=== PATIENT | female | born 1985 | race Caucasian/White ===

== ENCOUNTER 2021-11-23 09:29 | Outpatient (CLI) | payer BC, SELFPAY ==
--- NOTE | 2021-11-23 09:39 | CRLHL7_ITS ---
For Patients: As a result of the Cures Act, medical imaging exams and procedure reports are released immediately into your electronic medical record. You may view this report before your referring provider. If you have questions, please contact your health care provider. RIGHT DIAGNOSTIC MAMMOGRAM WITH COMPUTER-AIDED DETECTION AND TOMOSYNTHESIS, 11/23/2021 RIGHT AXILLA ULTRASOUND, 11/23/2021 CLINICAL HISTORY: 35-year-old with a LEFT axillary lump. TECHNIQUE: These mammographic images have been obtained using full-field digital technique. These mammographic images were interpreted with the benefit of computer-aided detection. Breast Tomosynthesis was used in this interpretation. RIGHT axilla ultrasound was also performed. COMPARISON FILM: No comparison. BREAST COMPOSITION: There are scattered areas of fibroglandular density. FINDINGS: No suspicious mammographic findings. Ultrasound over RIGHT axillary lump which is a superficial lump demonstrates a superficial 1.1 x 1.2 x 0.4 cm hypoechoic lesion just underneath the skin. This most likely reflects a sebaceous cyst. IMPRESSION: The patient???s lump corresponds to a 1.2 x 0.4 x 1.1 cm superficial hypoechoic lesion just underneath the skin; questionable skin tract. This most likely reflects a sebaceous cyst. To be conservative, followup ultrasound in three months is recommended. ASSESSMENT: BI-RADS Category 3: Probably Benign A lay language report of this examination will be provided to the patient. Tatiana Olmos M.D. Diagnostic/Breast Radiologist [email or web address] PT/Dictated by: Tatiana Olmos MD @ 11/23/2021 10:30:00 AM (Electronically Signed)
--- NOTE | 2021-11-23 10:15 | CRLHL7_ITS ---
For Patients: As a result of the Century Cures Act, medical imaging exams and procedure reports are released immediately into your electronic medical record. You may view this report before your referring provider. If you have questions, please contact your health care provider. PLEASE SEE RIGHT DIAGNOSTIC MAMMOGRAM OF SAME DAY. [email or web address] PT/Dictated by: Tatiana Olmos MD @ 11/23/2021 10:30:00 AM (Electronically Signed)
== END 2021-11-23 09:30 | disposition home or self-care (01) ==
LOC: MAMMO 09:30
PROVIDERS: PCP Family Medicine; Visit Provider Family Medicine
DX: R22.31 Localized swelling, mass and lump, right upper limb
CPT/HCPCS: 76882; 77065; G0279

== ENCOUNTER 2022-03-15 10:02 | Outpatient (CLI) | payer BC, SELFPAY ==
--- NOTE | 2022-03-15 10:15 | CRLHL7_ITS ---
For Patients: As a result of the Century Cures Act, medical imaging exams and procedure reports are released immediately into your electronic medical record. You may view this report before your referring provider. If you have questions, please contact your health care provider. INDICATION: Follow-up a right axillary palpable abnormality. Probable sebaceous cyst. TECHNIQUE: Directed right axillary ultrasound. COMPARISON: Correlation is made with a mammogram 11/23/2021. Comparison is made to a right axillary ultrasound 11/23/2021. FINDINGS: Just below the skin in the right axilla there is a 0.4 x 0.2 x 0.6 cm hypoechoic oval-shaped nodule likely a small sebaceous cyst. This has clearly decreased in size when compared with 11/23/2021 when it measured up to 1.2 cm. It is no longer palpable. No further workup or follow-up is recommended. IMPRESSION: Interval decrease in the size of a right axillary sebaceous cyst now measuring up to 0.6 cm previously 1.2 cm. No other further workup or follow-up is recommended. Dictated by Kaushal Griffin MD @ 03/15/2022 12:57:35 PM (Electronically Signed)
== END 2022-03-15 10:03 | disposition home or self-care (01) ==
LOC: US 10:02
PROVIDERS: PCP Family Medicine; Visit Provider Family Medicine
DX: R22.31 Localized swelling, mass and lump, right upper limb (principal)
CPT/HCPCS: 76882

== ENCOUNTER 2022-09-01 09:04 | Outpatient (CLI) | payer BC, SELFPAY | END 2022-09-01 09:05 | disposition home or self-care (01) | LOC: NFLDREF 16:44 | PROVIDERS: PCP Family Medicine; Referring Provider Family Medicine; Visit Provider Family Medicine | DX: Z00.00 Encounter for general adult medical examination without abnormal findings (principal); E78.5 Hyperlipidemia, unspecified; E66.9 Obesity, unspecified; E03.9 Hypothyroidism, unspecified; E55.9 Vitamin D deficiency, unspecified; F41.9 Anxiety disorder, unspecified; F32.A Depression, unspecified; K21.9 Gastro-esophageal reflux disease without esophagitis; F33.42 Major depressive disorder, recurrent, in full remission; J30.1 Allergic rhinitis due to pollen; F98.8 Other specified behavioral and emotional disorders with onset usually occurring in childhood and adolescence; Z13.9 Encounter for screening, unspecified | CPT/HCPCS: 80053; 80061; 82306; 84443 ==

== ENCOUNTER 2023-08-22 08:40 | Outpatient (CLI) | payer OTHER, SELFPAY | END 2023-08-22 08:41 | disposition home or self-care (01) | LOC: NFLDREF 08-24 11:58 | PROVIDERS: PCP Family Medicine; Referring Provider Family Medicine; Visit Provider Family Medicine | DX: E78.5 Hyperlipidemia, unspecified (principal); E03.9 Hypothyroidism, unspecified; E55.9 Vitamin D deficiency, unspecified | CPT/HCPCS: 80061; 82306; 84443 ==

== ENCOUNTER 2024-07-20 09:12 | Outpatient (CLI) | payer OTHER, SELFPAY | END 2024-07-20 09:13 | disposition home or self-care (01) | LOC: NFLDREF 07-25 00:43 | PROVIDERS: PCP Family Medicine; Referring Provider Family Medicine; Visit Provider Family Medicine | DX: E78.00 Pure hypercholesterolemia, unspecified (principal); E03.9 Hypothyroidism, unspecified; E55.9 Vitamin D deficiency, unspecified; R53.83 Other fatigue; M81.0 Age-related osteoporosis without current pathological fracture | CPT/HCPCS: 80053; 80061; 82306; 84443 ==

== ENCOUNTER 2024-07-24 09:39 | Outpatient (CLI) | payer OTHER, SELFPAY | END 2024-07-24 09:40 | disposition home or self-care (01) | PROVIDERS: PCP Family Medicine; Visit Provider Family Medicine | DX: N92.0 Excessive and frequent menstruation with regular cycle (principal); E78.00 Pure hypercholesterolemia, unspecified; E03.9 Hypothyroidism, unspecified; R53.83 Other fatigue; R73.03 Prediabetes; F98.8 Other specified behavioral and emotional disorders with onset usually occurring in childhood and adolescence; F33.42 Major depressive disorder, recurrent, in full remission; F41.9 Anxiety disorder, unspecified | CPT/HCPCS: 82607; 82728; 83540; 83550 ==

== ENCOUNTER 2024-08-28 15:49 | Outpatient (CLI) | payer OTHER, SELFPAY ==
[2024-08-30 04:32] LABS: HPV Source Cervix
== END 2024-08-28 15:50 | disposition home or self-care (01) ==
PROVIDERS: PCP Family Medicine; Visit Provider Obstetrics & Gynecology
DX: Z12.4 Encounter for screening for malignant neoplasm of cervix (principal); Z11.51 Encounter for screening for human papillomavirus (HPV)
CPT/HCPCS: 87624; 87625; 88141; 88142